=== PATIENT | female | born 1980 | race Caucasian/White ===

== ENCOUNTER 2019-04-30 11:54 | Emergency (ER) | payer MEDICARE, MEDICAID ==
[2019-04-30] MEDS ORDERED: Ketorolac *IM* INJ* 60 MG/2 ML VIAL IM ONE (13:41)
[2019-04-30 13:52] VITALS: BP 116/70
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
== END 2019-04-30 13:51 | disposition home or self-care (01) ==
LOC: MERGE 11:54 → ED 11:54
DX: G43.909 Migraine, unspecified, not intractable, without status migrainosus (principal); Z91.410 Personal history of adult physical and sexual abuse
CPT/HCPCS: 96372; 99282; J1885